=== PATIENT | male | born 1970 | race Caucasian/White ===

== ENCOUNTER 2017-10-21 13:59 | Emergency (ER) | payer BC ==
--- NOTE | 2017-10-21 14:33 | ED Physician Chart ---
ED Chief Complaint/HPI - Patient Information Date Seen:: 10/21/17 Time Seen:: 14:28 Chief Complaint:: low back pain and right foot pain History of Present Illness:: 46 yo male had low back pain for 1 week and the pain became less. In the mean time, he had right foot pain for 1 week and the pain worsened. It was throbbing pain, worsened by walking. Patient denied numbness or tingling. Allergies:: Allergies Allergy/AdvReac Type Severity Reaction Status Date / Time No Known Allergies Allergy Verified 10/21/17 14:22 ED Review of Systems - Review of Systems General/Constitutional: No fever, No chills Skin: No skin lesions Head: No headache Eyes: No pain ENT: No nasal drainage Neck: No neck pain Cardio Vascular: No chest pain Pulmonary: No SOB GI: No nausea, No vomiting Musculoskeletal: Back pain, Other (right foot pain) ED Past Medical History - Past Medical History Past Medical History: Other (low back pain ) Social History: Smoker, Alcohol, No Drug Use Surgical History: other (back surgery) Family Medical History - Family Member Brother Hx Family Cancer: No Hx Family Coronary Artery Disease: No Hx Family Hypertension: No Hx Family Stroke: No Hx Family Diabetes: No Hx Family Dementia: No Hx Family HIV: No Hx Family COPD: No Hx Family Psychiatric Problems: No ED Physical Exam - Physical Examination General/Constitutional: Awake, Alert Head: Atraumatic Eyes: PERRL Skin: No ecchymosis ENMT: Nasal exam nl Neck: No nuchal rigidity Respiratory: Clear to Auscultation, No Wheeze/Rhonchi/Rales Cardio Vascular: RRR, No murmur, gallop, rubs, NL S1 S2 GI: No tenderness/rebounding/guarding Other Extremities comments:: Right mid foot tenderness, worsening plantar pain on dorsal flexion ED Labs/Radiology/EKG Results - Radiology Results Results: right foot X ray: unremarkable ED Assessment - Assessment General Assessment: Right foot pain with possible plantar fasciitis Assessment/Comments:: CBC, CMP, uric acid Toradol 60mg IM D/c home Ibuprofen F/u PCP or 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 Is Septic Shock (SBP<90, OR Lactate>4 mmol\L) present?: No ED Reassessment (Disposition) - Reassessment Reassessment Condition:: Improved - Patient Disposition Discharge/Transfer:: Home
--- NOTE | 2017-10-21 14:57 | Diagnostic Imaging Report ---
Right foot 3 views Indication: pain Comparison: none Findings: Mild degenerative changes are noted. No evidence of acute fracture or dislocation. No significant focal soft tissue swelling. Impression: No evidence of an acute fracture. Mild degenerative changes. In the setting of trauma, if clinical symptoms persist and there is continued concern for an occult fracture, follow up exams in 5-7 days is suggested.
[2017-10-21 15:02] LABS: % EOSINOPHILS 3.3 % (0.0-5.0); % LYMPHOCYTES 23.9 % (20.0-50.0); % MONOCYTES 4.2 % (2.0-10.0); % NEUTROPHILS 67.6 % (40.0-80.0); BASOPHILE ABSOLUTE 0.1 Th/cumm (0-0.2); EOSINOPHILE ABSOLUTE 0.3 Th/cmm (0.1-0.4); HEMATOCRIT 43.8 % (41.0-60); HEMOGLOBIN 14.8 gm/dL (12-16); LYMPHOCYTE ABSOLUTE 2.1 Th/cmm (1.5-3.0); MEAN CELL VOLUME 85.4 fl (80-99); MEAN CORPUSCULAR HEMOGLOBIN 28.9 pg (26.0-30.0); MEAN CORPUSCULAR HGB CONC 33.8 pg (28.0-36.0); MEAN PLATELET VOLUME 7.9 fl; MONOCYTE ABSOLUTE 0.4 Th/cmm (0.3-1.0); NEUTROPHILE ABSOLUTE 5.7 Th/cmm (1.8-8.0); PLATELET COUNT 187 Th/cmm (150-400); RED BLOOD COUNT 5.13 Mil/cmm (4.30-5.70); RED CELL DISTRIBUTION WIDTH 12.7 % (11.5-20.0); WHITE BLOOD COUNT 8.6 Th/cmm (4.8-10.8)
[2017-10-21 15:17] LABS: ALB/GLOB RATIO 1.5 (1.0-1.8); ALBUMIN 3.6 gm/dL (4.2-5.5); ALKALINE PHOSPHATASE 44 U/L (34-104); ANION GAP 6.4 (7.0-16.0); BILIRUBIN,TOTAL 0.4 mg/dL (0.3-1.0); BUN - UREA NITROGEN 17 mg/dL (7-25); CALCIUM SERUM 8.9 mg/dL (8.6-10.3); CARBON DIOXIDE 27.3 mEq/L (21.0-31.0); CHLORIDE 106 mEq/L (98-107); GFR AFRICAN-AMERICAN > 60.0 ml/min (>90); GFR NON AFRICAN-AMERICAN > 60.0 ml/min; GLUCOSE 187 mg/dL (70-105); POTASSIUM SERUM 3.7 mEq/L (3.5-5.1); SGOT 15 U/L (13-39); SGPT/ALT 19 U/L (7-52); SODIUM SERUM 136 mEq/L (136-145); URIC ACID 7.1 mg/dL (4.4-7.6)
[2017-10-21 18:31] LABS: A1C % 5.6 % (4.0-6.0)
== END 2017-10-21 16:10 | disposition home or self-care (01) ==
LOC: ER 13:59
DX: M54.5 Low back pain (principal); M79.671 Pain in right foot
CPT/HCPCS: 99285; 96372; 73630; 36415; 85025; 83036; 80053; 84550; J1885